=== PATIENT | male | born 1980 | race American Indian/Alaskan Native ===

== ENCOUNTER 2018-08-05 08:59 | Outpatient (CLI) | payer MEDICAID ==
[2018-08-05] MEDS ORDERED: XYLOCAINE TOPICAL 4% TP ONE ×2 (09:16→09:49)
[2018-08-05] MEDS ORDERED: SILVER NITRATE TP ONE ×2 (10:24→10:51)
== END 2018-08-05 09:00 | disposition home or self-care (01) ==
LOC: WOUND 08:59
PROVIDERS: ATTEND Surgery
DX: L89.132 Pressure ulcer of right lower back, stage 2 (principal); L89.213 Pressure ulcer of right hip, stage 3; L89.893 Pressure ulcer of other site, stage 3; L89.153 Pressure ulcer of sacral region, stage 3; L89.313 Pressure ulcer of right buttock, stage 3; G82.50 Quadriplegia, unspecified; F17.200 Nicotine dependence, unspecified, uncomplicated

== ENCOUNTER 2018-08-12 08:47 | Outpatient (CLI) | payer MEDICAID ==
[2018-08-12] MEDS ORDERED: XYLOCAINE TOPICAL 4% TP ONE ×2 (08:55→09:41)
[2018-08-12] MEDS ORDERED: AD OINTMENT TP ONE (09:17)
[2018-08-12] MEDS ORDERED: AD OINTMENT TP PRN (09:41)
== END 2018-08-12 08:48 | disposition home or self-care (01) ==
LOC: WOUND 08:47
PROVIDERS: ATTEND Surgery
DX: L89.132 Pressure ulcer of right lower back, stage 2 (principal); L89.213 Pressure ulcer of right hip, stage 3; L89.893 Pressure ulcer of other site, stage 3; L89.153 Pressure ulcer of sacral region, stage 3; L89.313 Pressure ulcer of right buttock, stage 3; G82.50 Quadriplegia, unspecified; F17.200 Nicotine dependence, unspecified, uncomplicated
CPT/HCPCS: A6250

== ENCOUNTER 2018-09-01 12:02 | Outpatient (CLI) | payer MEDICAID ==
[2018-09-01] MEDS ORDERED: XYLOCAINE TOPICAL 4% TP ONE ×2 (12:26→13:11)
[2018-09-01] MEDS ORDERED: SILVER NITRATE TP ONE ×2 (13:25→13:29)
== END 2018-09-01 12:03 | disposition home or self-care (01) ==
LOC: WOUND 12:02
PROVIDERS: ATTEND Surgery
DX: L89.132 Pressure ulcer of right lower back, stage 2 (principal); L89.213 Pressure ulcer of right hip, stage 3; L89.893 Pressure ulcer of other site, stage 3; L89.153 Pressure ulcer of sacral region, stage 3; L89.313 Pressure ulcer of right buttock, stage 3; G82.50 Quadriplegia, unspecified; F17.200 Nicotine dependence, unspecified, uncomplicated

== ENCOUNTER 2018-09-08 12:43 | Outpatient (CLI) | payer MEDICAID ==
[2018-09-08] MEDS ORDERED: XYLOCAINE TOPICAL 4% TP ONE ×2 (13:12→16:38)
== END 2018-09-08 12:44 | disposition home or self-care (01) ==
LOC: WOUND 12:43
PROVIDERS: ATTEND Surgery
DX: L89.132 Pressure ulcer of right lower back, stage 2 (principal); L89.213 Pressure ulcer of right hip, stage 3; L89.893 Pressure ulcer of other site, stage 3; L89.153 Pressure ulcer of sacral region, stage 3; L89.313 Pressure ulcer of right buttock, stage 3; G82.50 Quadriplegia, unspecified; F17.200 Nicotine dependence, unspecified, uncomplicated